=== PATIENT | female | born 1955 | race Caucasian/White ===

== ENCOUNTER 2017-11-06 08:02 | Day surgery (SDC) | payer OTHER ==
[2017-11-05 10:49] VITALS: BMI 21.0
[2017-11-06] MEDS ORDERED: PROPOFOL 20 ML ONE (08:06)
[2017-11-06] MEDS ORDERED: LIDOCAINE HCL/PF 2% SDV 5ML VIAL ONE (08:07)
[2017-11-06 09:29] VITALS: TEMP 97.4
[2017-11-06 10:05] VITALS: BP 102/60; PULSE 57
--- NOTE | 2017-11-07 11:11 | PATH ---
Surgical Pathology Report Patient Name: BETH MONTANO [facility]. Rec. #: [id number] /Age/Gender: 1955 (Age: 62) / F Account: [id number] Location: [facility] Taken: 11/06/2017 Received: 11/06/2017 Reported: 11/07/2017 Physicians: Jose Crawford M.D. Specimen(s) Received BX ANTRUM Clinical History GERD Postoperative diagnosis: Gastritis Final Diagnosis STOMACH, ANTRUM, BIOPSY: GASTRIC ANTRAL MUCOSA WITH MILD CHRONIC GASTRITIS. IMMUNOHISTOCHEMICAL STAIN FOR H. PYLORI IS NEGATIVE. Electronically Signed Kristy Mcnair M.D. Gross Description Received in formalin, labeled "antrum" are 2 malloy, irregular portions of soft tissue measuring 0.3 and 0.4 cm. in greatest dimension. The specimens are submitted in toto in one cassette. /11/06/201711/06/2017
== END 2017-11-06 10:00 | disposition home or self-care (01) ==
LOC: FASU-ENDO 08:02
PROVIDERS: ATTEND Internal Medicine Gastroenterology
PROC: 0DB68ZX Excision of Stomach, Via Natural or Artificial Opening Endoscopic, Diagnostic (ICD-10-PCS; principal; 2017-11-06 09:10)
DX: K29.50 Unspecified chronic gastritis without bleeding (principal); R10.13 Epigastric pain

== ENCOUNTER 2020-04-12 08:31 | Day surgery (SDC) | payer OTHER ==
--- OUTSIDE RECORDS SUMMARY | 2020-04-05 10:33 | XMS ---
:1955 Author Organization [facility] Care Team Providers Name Role Phone Pam, Mode Unavailable Unavailable Pam, Mode Unavailable Unavailable Pam, Mode Unavailable Unavailable Pam, Mode Unavailable Unavailable Pam, Mode Unavailable Unavailable Pam, Mode Unavailable Unavailable Pam, Mode Unavailable Unavailable Pam, Mode Unavailable Unavailable Pam, Mode Unavailable Unavailable Re-disclosure Warning The records that you are about to access may contain information from federally- assisted alcohol or drug abuse programs. If such information is present, then the following federally mandated warning applies: This information has been disclosed to you from records protected by federal confidentiality rules (42 CFR part 2). The federal rules prohibit you from making any further disclosure of this information unless further disclosure is expressly permitted by the written consent of the person to whom it pertains or as otherwise permitted by 42 CFR part 2. A general authorization for the release of medical or other information is NOT sufficient for this purpose. The Federal rules restrict any use of the information to criminally investigate or prosecute any alcohol or drug abuse patient.The records that you are about to access may contain highly sensitive health information, the redisclosure of which is protected by Article 27-F of the [facility] Public Health law. If you continue you may haveaccess to information: Regarding HIV / AIDS; Provided by facilities licensed or operated by the [facility] Office of Mental Health; or Provided by the [facility] Office for People With Developmental Disabilities. If such information is present, then the following [facility] mandated warning applies: This information has been disclosed to you from confidential records which are protected by state law. State law prohibits you from making any further disclosure of this information without the specific written consent of the person to whom it pertains, or as otherwise permitted by law. Any unauthorized further disclosure in violation of state law may result in a fine or half-way sentence or both. A general authorization for the release of medical or other information is NOT sufficient authorization for further disclosure. Encounters Encounter Providers Location Date Indications Data Source(s ) Attender: Mode 03/20/2020 [facility] ( [facility] 12:00:00 AM ED [facility], ) Office Immunizations Vaccine Date Status Description Data Source(s) IIV3. This is one of 05/04/2019 completed [facility] ([facility] two codes replacing CVX 12:00:00 AM EST [place], ) 15, which is being retired. Insurance Providers Payer name Policy type Policy ID Covered Covered libertarian's Policy P nabil / Coverage libertarian ID relationship to [facility] Inf ormation type bryson [facility] [id number] CARE HMO/POS/EPO [place] [id number] HEALTHCARE (PPO) Surgeries/Procedures Procedure Description Date Indications Data Source(s) Documentation of current 03/20/2020 [facility] ([facility] medications (procedure) 12:00:00 AM EDT [facility], ) Documentation of current 03/20/2020 [facility] ECG ROUTINE ECG W/LEAST 03/20/2020 [facility] ([facility] 12 LDS W/I&R 12:00:00 AM EDT Medical, ) Social History Code Duration Value Status Description Data Source(s ) Smoking 03/20/2020 Tobacco Status: completed Tobacco Status: [facility] EN (St 12:00:00 AM Never smoker Never smoker [facility], EDT Marital Status Marital Status ) Household Household Members 2 Lives Members 2 Lives Independently No Independently No Number of Children Number of Childre n 2 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 Alcohol Use Social Alcohol Use Socia l Smoking 03/20/2020 Unknown if ever completed Unknown if ever [facility] EN (St 12:00:00 AM smoked smoked [facility], [facility]T [facility]) Vital Signs ID Date Data Source UNK Name Value Range Interpretation Code Description Data Source(s) Heart rate 70 /min 70 /min [facility] ([facility], ) Respiratory rate 14 /min 14 /min [facility] ( [facility]) Body mass index 21.2 kg/m2 21.2 kg/m2 [facility] ([facility] (BMI) [Ratio] [facility], ) Diastolic blood 66 mm[Hg] 66 mm[Hg] [facility] ([facility]) Systolic blood 126 mm[Hg] 126 mm[Hg] [facility] ([facility], ) Body weight 116 lb 116 lb [facility] ([facility], ) Body height 62 in 62 in [facility] ([facility] [place])
[2020-04-06 14:46] VITALS: BMI 20.8
--- OUTSIDE RECORDS SUMMARY | 2020-04-12 08:36 | XMS ---
[...] protected by Article 27-F of the [facility] Public Health law. If you continue you may haveaccess to information: Regarding HIV / AIDS; Provided by facilities licensed or operated by the [facility] Office of Mental Health; or Provided by the [facility] Office for People With Developmental Disabilities. If such information is present, then the following [facility] mandated warning applies: This information has been [...] law may result in a fine or custodial sentence or both. A general authorization for [...] two codes replacing CVX 12:00:00 AM EST [facility], ) [facility], which is being retired. Insurance Providers Payer name Policy type Policy ID Covered Covered democrat's Policy P nabil / Coverage democrat ID relationship to [facility] Inf ormation type smith [facility] [id number] CARE HMO/POS/EPO [place] [id number] HEALTHCARE (PPO) Surgeries/Procedures Procedure Description Date Indications Data Source(s) Documentation of current 03/20/2020 [facility] ([facility] (procedure) 12:00:00 AM EDT [facility] ) Documentation of current 03/20/2020 [facility] ([facility] medications (procedure) 12:00:00 AM EDT [facility], ) ECG ROUTINE ECG W/LEAST 03/20/2020 [facility] ([facility] 12 LDS W/I&R 12:00:00 AM ED Medical, ) Results ID Date Data Source [id number] 04/08/2020 12:11:00 PM EDT [facility] Name Value Range Interpretation Description Data Sup porting Code Source(s) Document(s ) SARS [facility] coronavirus 2 RNA This lab was ordered by SIRI GRAMAJO and reported by [facility]. 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 Alcohol Use Social Alcohol Use Socia l Smoking 03/20/2020 Unknown if ever completed Unknown if ever [facility] EN (St 12:00:00 AM smoked smoked [facility], EDT ) Vital Signs ID Date Data Source UNK Name Value Range Interpretation Code Description Data Source(s) Heart rate 70 /min 70 /min [facility] ([facility] [place], ) Respiratory rate 14 /min 14 /min [facility] ( [facility] [place], ) Body mass index 21.2 kg/m2 21.2 kg/m2 [facility] ([facility] (BMI) [Ratio] [facility], ) Diastolic blood 66 mm[Hg] 66 mm[Hg] [facility] ([facility], ) Systolic blood 126 mm[Hg] 126 mm[Hg] [facility] ([place] pressure [facility], ) Body weight 116 lb 116 lb [facility] ([facility], ) Body height 62 in [facility], )
[2020-04-12] MEDS ORDERED: LIDOCAINE HCL 2% (20ML MULTI-DOSE VIAL) ONE (10:23)
[2020-04-12] MEDS ORDERED: LIDOCAINE HCL 2% (50ML VIAL) NR ONE (10:35)
[2020-04-12 11:04] VITALS: BP 107/57; PULSE 64; TEMP 97.8
--- NOTE | 2020-04-12 12:14 | OP ---
DATE OF ADMISSION: 04/12/2020 PREOPERATIVE DIAGNOSIS: Right thumb mass. POSTOPERATIVE DIAGNOSIS: Right thumb mass. OPERATIVE PROCEDURE: Right thumb mass excision. SURGEON: Fernando Noriega MD ANESTHESIA: Local anesthesia. COMPLICATIONS: None. ESTIMATED BLOOD LOSS: Minimal. INDICATION FOR PROCEDURE: [id number]-old female with the above finding indicated for operative treatment. Risks, benefits, and alternatives were discussed with her at length, and proper informed consent was obtained. DESCRIPTION OF PROCEDURE: After preoperative identification of the patient and correct operative site, patient was brought to the operating room and placed supine on the operating table with all prominences well padded. Local anesthesia was given with 2% lidocaine. Right upper extremity was prepped and draped in the usual sterile fashion. Finger tourniquet was used. Mass was found to be present in the volar aspect of the thumb pulp at the distal phalanx area. An ellipsoid incision was made over the mass, and soft tissue was excised along with the subcutaneous tissue where the mass was present, which was found to be a foreign body reaction to a small foreign body. This was all excised and sent for pathologic evaluation. The foreign body appeared to be a splinter or a thorn. No further masses or foreign body were noted. Wound was repaired with 5-0 fast-absorbing plain gut suture as well as Dermabond. Sterile dressings were applied. Patient was brought to the recovery room in stable condition. She tolerated the procedure well. Nguyen SCHUMACHER/[id number]
[2020-04-12] MEDS ORDERED: oxyCODONE HCL 5 MG TABLET PO PRN (13:28)
[2020-04-12] MEDS ORDERED: ACETAMINOPHEN 325 MG TABLET (FP) PO PRN (13:28)
[2020-04-12] MEDS ORDERED: ONDANSETRON 4 MG/2 ML VIAL IVPUSH PRN (13:28)
[2020-04-12] MEDS ORDERED: LACTATED RINGERS SOLUTION 1,000 ML IV SCH (13:30)
--- NOTE | 2020-04-14 11:35 | PATH ---
Surgical Pathology Report Patient Name: BETH MONTANO [facility]. Rec. #: [id number] /Age/Gender: 1955 (Age: 65) / F Account: [id number] Location: ON LICENSE OF [facility] AMBULATORY Taken: 04/12/2020 Received: 04/12/2020 Reported: 04/14/2020 Physicians: Fernando Noriega M.D. 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 Electronically Signed Kristy Mcnair M.D. Gross Description Received in formalin labeled "right thumb mass/foreign body," is a 0.8 x 0.2 cm malloy, elliptical portion of skin excised to a depth of 0.6 cm. The epidermal surface is unremarkable. No discrete foreign body is identified. The specimen is submitted in toto in one cassette. /04/13/2020 [facility]/04/13/2020
== END 2020-04-12 11:19 | disposition home or self-care (01) ==
LOC: FASU 08:31
PROVIDERS: ATTEND Orthopaedic Surgery Hand Surgery
PROC: 0JCJ0ZZ Extirpation of Matter from Right Hand Subcutaneous Tissue and Fascia, Open Approach (ICD-10-PCS; principal; 2020-04-12 10:38)
DX: M79.5 Residual foreign body in soft tissue (principal)
CPT/HCPCS: 88305-TC